=== PATIENT | male | born 1980 | race Caucasian/White ===

== ENCOUNTER 2019-09-18 09:52 | Inpatient (IN) | payer OTHER ==
[~2019-09-18] VITALS: Ht 175.3 cm; Wt 74.9 kg
[2019-09-18] VITALS (34 sets, daily range): BP systolic 181–228; BP diastolic 120–175
--- NOTE | 2019-09-18 10:00 | NUR ---
ER Provider Dr Liang made aware of BP. NO orders
[2019-09-18 10:29] LABS: BASOPHILS # (AUTO) 0.1 /CMM (0.0-0.2); BASOPHILS % (AUTO) 0.8 % (0.0-2.0); EOSINOPHILS % (AUTO) 0.6 % (0.0-6.0); HEMATOCRIT 42 % (39-51); HEMOGLOBIN 13.4 g/dL (13.5-17.5); LYMPHOCYTES # (AUTO) 1.1 /CMM (0.8-4.8); LYMPHOCYTES % (AUTO) 11.5 % (20.0-44.0); MEAN CORPUSCULAR HGB CONC 32 g/dl (31.0-36.0); MEAN CORPUSCULAR VOLUME 74 fL (80-96); MONOCYTES # (AUTO) 0.5 /CMM (0.1-1.30); MONOCYTES % (AUTO) 5.3 % (2.0-12.0); NEUTROPHILS # (AUTO) 7.8 /CMM (1.8-8.9); NEUTROPHILS % (AUTO) 81.8 % (43.0-81.0); PLATELET COUNT (AUTO) 294 /CMM (150-450); RED BLOOD CELL COUNT(AUTO) 5.62 MIL/uL (4.5-6.0); WHITE BLOOD COUNT (AUTO) 9.5 K/uL (4.3-11.0)
[2019-09-18] MEDS ORDERED: HYDR-4077 PO (10:30)
[2019-09-18] MEDS ORDERED: CLON0.1T PO (10:30)
--- NOTE | 2019-09-18 10:30 | NUR ---
Comfortably reclining in bed NO acute changes. Await admission
[2019-09-18 10:37] LABS: CALCIUM, SERUM 8.6 mg/dL (8.5-10.1); CREATININE 2.5 mg/dL (0.6-1.3); POTASSIUM 3.8 mmol/L (3.5-5.1)
[2019-09-18 10:53] LABS: ALBUMIN 2.7 g/dL (3.4-5.0); BILIRUBIN,TOTAL 0.7 mg/dL (0.2-1.0); TOTAL PROTEIN, SERUM 6.3 g/dL (6.4-8.2)
[2019-09-18 10:55] LABS: D-DIMER 0.36 mg/L(FEU (0.17-0.50)
[2019-09-18] MEDS ORDERED: HYDROXYCHLOROQUINE 200 MG TABLET PO ONE (11:00)
[2019-09-18] MEDS ORDERED: CEFTRIAXONE 1GM BAG (ER ONLY) 50 ML IV ONE (11:00)
[2019-09-18] MEDS ORDERED: CEFTRIAXONE 1 G in IV D5W 50 ML IV ONE (11:00)
[2019-09-18] MEDS ORDERED: AZITHROMYCIN 500 MG in IV D5W 250 ML IV ONE (11:00)
[2019-09-18 11:05] LABS: C-REACTIVE PROTEIN 4.1 mg/dL (0.0-0.9)
[2019-09-18] MEDS ORDERED: HYDROXYCHLOROQUINE 200 MG TABLET ONE (11:07)
--- NOTE | 2019-09-18 11:16 | NUR ---
Endorsed to Marcellus
--- NOTE | 2019-09-18 11:19 | NUR ---
PT IS ASSIGNED 111-2
--- NOTE | 2019-09-18 11:32 | NUR ---
MADE AWARE OF BP 236/177.
[2019-09-18] MEDS ORDERED: NITROGLYCERIN PACKET 1 GM PACKET TD ONE (12:00)
[2019-09-18] MEDS ORDERED: NITROGLYCERIN PACKET 1 GM PACKET ONE (12:08)
--- NOTE | 2019-09-18 12:19 | NUR ---
REPORT GIVEN HARJINDER HOLLINGSWORTH FOR LIANA.
[2019-09-18] MEDS ORDERED: ASPIRIN 325 MG TABLET ONE (12:29)
[2019-09-18] MEDS ORDERED: ASPIRIN 325 MG TABLET PO ONE (12:30)
[2019-09-18] MEDS ORDERED: MORPHINE SULFATE INJ 2 MG/ML DISP.SYRIN IV PRN (13:00)
[2019-09-18] MEDS ORDERED: NITROGLYCERIN 0.4 MG/TAB BOTTLE SL PRN (13:00)
--- NOTE | 2019-09-18 13:17 | NUR ---
SPOKE TO ACTIVITY LEADER ASA, AUTHORIZATION # [id number]
[2019-09-18] MEDS ORDERED: HEPARIN SODIUM, PORCINE 5000 UNITS/1 ML VIAL SQ ONE (13:30)
--- NOTE | 2019-09-18 13:53 | NUR ---
PT TRANSPORTED TO UNIT ON RNORWALK WITH EMT AND RN AT BEDSIDE W/ ACLS PROTOCOL. PT AMBULATED FROM GURNEY TO BED W/O ASSIST
[2019-09-18] MEDS ORDERED: ONDANSETRON HCL/PF 4 MG/2 ML VIAL IVP PRN (14:00)
[2019-09-18] MEDS ORDERED: HYDROXYCHLOROQUINE 200 MG TABLET PO SCH (14:00)
[2019-09-18] MEDS ORDERED: ACETAMINOPHEN 325 MG TABLET PO PRN (14:00)
[2019-09-18] MEDS ORDERED: PANTOPRAZOLE 40 MG VIAL ONE (14:15)
--- NOTE | 2019-09-18 14:29 | NUR ---
1320 received pt from er not stable rr 40 shallow lower extremity pitting edema +4 on 4l nc sat 96% sbp 214/[address] Ahumada was notified no new orders, dr. Morrison at bedside advised pt to be transfered to icu orders followed pt will be transfered to icu
[2019-09-18] MEDS: FUROSEMIDE 40 MG/4 ML VIAL IV SCH ×2 (14:37→20:11)
[2019-09-18] MEDS: hydrALAZINE HCL 50 MG TABLET PO SCH ×2 (14:37→20:13)
--- NOTE | 2019-09-18 14:45 | NUR ---
PATIENT TRANSFERRED FROM [facility] TO HYPERTENSIVE URGENCY-SBP>220. PER DR. VILLEDA-PATIENT SHOULD HAVE BEEN ADMITTED STRAIGHT TO ICU. UPON ARRIVAL, PATIENT PLACED ON CONTINUOUS MONITORING, SBP >220, DBP>120. PATIENT ST 110 ON MONITOR. O2 AT 4L N/C -SATS 96%. AWAKE, ALERT AND ORIENTED, DENIES CP,DENIES PALPITATION. C/O SOB AND HEADACHE. COMPLETE ADMISSION ASSESSMENT/SYSYTEM ASSESSMENT INITIATED.
--- NOTE | 2019-09-18 15:15 | NUR ---
SPOKE TO DR. VILLEDA RE: INCREASED BP. WITH ORDERS TO START NITROGLYCERIN DRIP -TITRATE PER MD ORDER.
[2019-09-18] MEDS ORDERED: NITROGLYCERIN 100 MG in IV D5W 230 ML IV PRN ×2 (15:30→16:30)
--- NOTE | 2019-09-18 16:15 | NUR ---
FF UP TO PHARMACY RE: NTG DRIP . WILL BRING MED.
[2019-09-18] MEDS: NTG 50 MG/D5W250 ML BOTTL 250 ML IV PRN ×2 (16:25→22:17)
[2019-09-18 16:29] LABS: APPEARANCE,URINE SL CLOUDY (CLEAR); BILIRUBIN,URINE NEGATIVE (NEGATIVE); BLOOD, URINE NEGATIVE Ery/uL (NEGATIVE); COLOR,URINE YELLOW (YELLOW); KETONES,URINE NEGATIVE (NEGATIVE); LEUKOCYTE ESTERASE ,URINE NEGATIVE (NEGATIVE); NITRITE, URINE NEGATIVE (NEGATIVE); PROTEIN,URINE 100 mg/dl (NEGATIVE); UGLUCOSE NEGATIVE (NEGATIVE); UROBILINOGEN,URINE 0.2 EU/dL (0.2)
[2019-09-18 16:42] LABS: CREATININE, URINE 162.7 MG/DL (30.0-125.0); URINE TOTAL PROTEIN 214.2 mg/dL (0-11.9)
[2019-09-18 16:59] LABS: BACTERIA,URINE Rare /HPF (None Seen); COARSE GRANULAR CASTS,URINE Few /LPF (None Seen); EOSINOPHIL,URINE None Seen; SQUAMOUS EPITHELIAL CELL,UR Few /HPF (None Seen); WBC,URINE 0-2 /HPF (0-3)
[2019-09-18] MEDS ORDERED: NITROGLYCERIN PACKET 1 GM PACKET TOP SCH (18:00)
--- NOTE | 2019-09-18 18:00 | NUR ---
ONGOING TITRATION OF NTG GTT. PATIENT DENIES CHEST DISCOMFORT. NO PALPITATION. DIURESING WELL POST LASIX. CONTINUE POC.
--- NOTE | 2019-09-18 20:00 | NUR ---
Received patient A/OX4.Dx:CHF,PNA,NSTEMI,R/O COVID.SR.Hemodynamically unstable BP 221/149 with ongoing Nitroglycerine gtt & will titrate accordingly to keep SBP<160,DBP<100.Also patient on lasix IVP & Hydralazine po scheduled dose.Patient denies chest pain or palpitation.Respiration even and unlabored.With O2 4L NC sat 93%-100%.With sob on exertion.Voiding well per urinal.Droplet/ Contact Isolation precaution maintained.Continue monitoring.Call light at bedside.
--- NOTE | 2019-09-18 22:25 | NUR ---
Patient BP remains elevated max out on NTG gtt.Was medicated with Tylenol PRN MILD headache.
[2019-09-19] VITALS (91 sets, daily range): BP systolic 128–249; BP diastolic 73–166
[2019-09-19] MEDS ORDERED: NTG 50 MG/D5W250 ML BOTTL 250 ML IV ONE (01:35)
[2019-09-19] MEDS: FUROSEMIDE 40 MG/4 ML VIAL IV SCH ×2 (01:41→09:32)
[2019-09-19] MEDS: NTG 50 MG/D5W250 ML BOTTL 250 ML IV PRN (02:44)
[2019-09-19] MEDS ORDERED: MORPHINE SULFATE INJ 2 MG/ML DISP.SYRIN IV ONE (04:00)
--- NOTE | 2019-09-19 04:05 | NUR ---
Patient complaints of severe headache.Brittany FONTENOT here and made aware of BP remains elevated with NGT gtt max out also c/o severe headache.Orders received and carried out. Continue monitoring.
--- NOTE | 2019-09-19 04:30 | NUR ---
AM care done with patient assisting.Complete linens changed.
[2019-09-19] MEDS: hydrALAZINE HCL 50 MG TABLET PO SCH ×3 (04:50→20:42)
[2019-09-19 05:24] LABS: BASOPHILS % (AUTO) 0.4 % (0.0-2.0); EOSINOPHILS % (AUTO) 0.8 % (0.0-6.0); HEMATOCRIT 35 % (39-51); HEMOGLOBIN 11.3 g/dL (13.5-17.5); LYMPHOCYTES # (AUTO) 0.6 /CMM (0.8-4.8); LYMPHOCYTES % (AUTO) 6.1 % (20.0-44.0); MEAN CORPUSCULAR HGB CONC 32 g/dl (31.0-36.0); MEAN CORPUSCULAR VOLUME 74 fL (80-96); MONOCYTES # (AUTO) 0.7 /CMM (0.1-1.30); MONOCYTES % (AUTO) 7.4 % (2.0-12.0); NEUTROPHILS # (AUTO) 7.7 /CMM (1.8-8.9); NEUTROPHILS % (AUTO) 85.3 % (43.0-81.0); PLATELET COUNT (AUTO) 268 /CMM (150-450); RED BLOOD CELL COUNT(AUTO) 4.78 MIL/uL (4.5-6.0); WHITE BLOOD COUNT (AUTO) 9.1 K/uL (4.3-11.0)
--- NOTE | 2019-09-19 05:48 | NUR ---
Patient BP remains elevated SBP 198,210's,DBP's 130's-150's.BrittanySTRAP CUTTER notified.She said she will change meds to CARDENE.Per patient headache subsiding.From 03/05-10/03. Remains tachypneic hi 30's,and tachycardic 105-110.Denies chest pain,nausea or vomiting. NGT gtt infusing same dose awaiting new orders.Continue monitoring.
[2019-09-19] MEDS ORDERED: PIPERACILLIN /TAZOBACTAM 2.25 G in IV D5W 50 ML IV ONE (06:00)
[2019-09-19] MEDS ORDERED: PIPERACILLIN /TAZOBACTAM 2.25 G VIAL IV ONE (06:26)
[2019-09-19] MEDS ORDERED: NICARDIPINE IN DEXTROSE,ISO-OS 200 ML IV ONE (06:28)
[2019-09-19] MEDS ORDERED: NICARDIPINE HCL 50 MG in IV NS 0.9% 230 ML IV PRN (06:30)
[2019-09-19 06:31] LABS: D-DIMER 0.49 mg/L(FEU (0.17-0.50)
--- NOTE | 2019-09-19 07:15 | NUR ---
NTG GTT COMPLETED. SPOKE TO PHARMACIST RE: TAMI SHAW ORDER.
--- NOTE | 2019-09-19 08:10 | NUR ---
SPOKE TO DR. FINCH re: SIGNIFICANTLY HIGH BP INSPITE OF GTT-PER MD WILL READJUST BP MEDS.
[2019-09-19 08:19] LABS: ALBUMIN 2.6 g/dL (3.4-5.0); BILIRUBIN,TOTAL 0.8 mg/dL (0.2-1.0); CALCIUM, SERUM 8.7 mg/dL (8.5-10.1); CREATININE 2.5 mg/dL (0.6-1.3); MAGNESIUM 1.9 mg/dL (1.8-2.4); PHOSPHORUS 4.1 mg/dL (2.5-4.9); POTASSIUM 3.2 mmol/L (3.5-5.1); TOTAL PROTEIN, SERUM 5.9 g/dL (6.4-8.2)
[2019-09-19] MEDS ORDERED: NIFEdipine XL (30MG) 30 MG TAB PO SCH (09:00)
[2019-09-19 09:01] LABS: APPEARANCE,URINE CLEAR (CLEAR); BILIRUBIN,URINE NEGATIVE (NEGATIVE); BLOOD, URINE NEGATIVE Ery/uL (NEGATIVE); KETONES,URINE NEGATIVE (NEGATIVE); LEUKOCYTE ESTERASE ,URINE NEGATIVE (NEGATIVE); NITRITE, URINE NEGATIVE (NEGATIVE); PH,URINE 6.5 (5.0-8.0); PROTEIN,URINE TRACE mg/dl (NEGATIVE); UGLUCOSE NEGATIVE (NEGATIVE); UROBILINOGEN,URINE 0.2 EU/dL (0.2)
[2019-09-19 09:07] LABS: COLOR,URINE STRAW (YELLOW)
[2019-09-19] MEDS: ASPIRIN EC 81 MG TABLET.DR PO SCH (09:28)
[2019-09-19] MEDS: POTASSIUM CHLORIDE 20 MEQ TAB.PRT.SR PO SCH ×2 (09:28→10:33)
[2019-09-19] MEDS: HYDROXYCHLOROQUINE 200 MG TABLET PO SCH ×2 (09:28→20:42)
[2019-09-19] MEDS: ISOSORBIDE DINITRATE (20MG) 20 MG TABLET PO SCH ×2 (09:28→16:18)
--- NOTE | 2019-09-19 09:30 | NUR ---
BP PO MEDS GIVEN PER DR. FINCH. BUMEX DRIP STARTED. REMAINS ON CARDENE DRIP AT 5 MG/HR . SBP>200. WILL CONTINUE TO MONITOR CLOSELY. PATIENT DENIES HEADACHE. NO DISCOMFORT PRESENTED.
[2019-09-19] MEDS ORDERED: FUROSEMIDE 40 MG/4 ML VIAL IV SCH (10:00)
[2019-09-19] MEDS ORDERED: BUMETANIDE INJ 8 MG in IV NS 0.9% 48 ML IV ONE (10:00)
[2019-09-19 10:42] LABS: THYROID STIMULATING HORMONE 3.024 uIU/mL (0.358-3.74); URIC ACID 7.6 mg/dL (2.6-7.2)
[2019-09-19] MEDS ORDERED: CEFTRIAXONE 1 G in IV D5W 50 ML IV SCH (11:00)
[2019-09-19 11:35] LABS: BACTERIA,URINE Rare /HPF (None Seen); RBC,URINE 0-2 /HPF (0-2); SQUAMOUS EPITHELIAL CELL,UR Rare /HPF (None Seen); WBC,URINE 0-2 /HPF (0-3)
[2019-09-19] MEDS ORDERED: PIPERACILLIN /TAZOBACTAM 2.25 G in IV D5W 50 ML IV SCH (12:00)
[2019-09-19] MEDS: PIPERACILLIN /TAZOBACTAM 3.375 G in IV D5W 100 ML IV SCH ×2 (13:04→20:00)
[2019-09-19 13:41] LABS: EOSINOPHIL,URINE None Seen
--- NOTE | 2019-09-19 14:30 | NUR ---
NICARDIPINE GTT TITRATED OFF AT THIS TIME. ABP>150'S.
--- NOTE | 2019-09-19 17:00 | NUR ---
CARDENE DRIP REMAINS OFF. [id number]. NO VERBAL COMPLAINTS PRESENTED. AMBULATORY AT BEDSIDE. NO DIZZINESS PRESENTED.
--- NOTE | 2019-09-19 20:00 | NUR ---
Received patient A/OX4.VS stable.ST 105-112.Respiration even and unlabored.On RA saturation 96%-97%.Denies chest pain or sob.Voiding per urinal moderate amount.Ambulating at bedside. Continue monitoring.
--- NOTE | 2019-09-19 23:30 | NUR ---
Patient CT Chest wo contrast done.Tolerated procedure well.
[2019-09-20] VITALS (71 sets, daily range): BP systolic 138–187; BP diastolic 72–111
--- NOTE | 2019-09-20 00:15 | NUR ---
Patient resting in no acute distress.Afebrile.ST 103.SPO2 100% in RA.Respiration even and unlabored.BP elevated 162/110.Nicardipine gtt restarted.Continue to monitor.
--- NOTE | 2019-09-20 02:34 | NUR ---
DR. Dora Xiong,Radiologist called of patient CT Chest results looks like COVID 19 Pneumonia +VE. Droplet Isolation maintained.
[2019-09-20] MEDS ORDERED: PIPERACILLIN /TAZOBACTAM 3.375 G VIAL IV ONE ×2 (03:25→20:26)
[2019-09-20] MEDS ORDERED: NICARDIPINE IN DEXTROSE,ISO-OS 200 ML IV ONE (03:33)
[2019-09-20] MEDS: PIPERACILLIN /TAZOBACTAM 3.375 G in IV D5W 100 ML IV SCH ×3 (04:00→20:28)
[2019-09-20] MEDS ORDERED: IV NS 0.9% 250 ML IV ONE (04:30)
[2019-09-20] MEDS ORDERED: NICARDIPINE HCL 20 MG in IV NS 0.9% 184 ML IV PRN (05:00)
[2019-09-20] MEDS: hydrALAZINE HCL 50 MG TABLET PO SCH ×3 (05:02→20:28)
[2019-09-20 05:09] LABS: BASOPHILS # (AUTO) 0.1 /CMM (0.0-0.2); BASOPHILS % (AUTO) 1.1 % (0.0-2.0); EOSINOPHILS % (AUTO) 3.9 % (0.0-6.0); HEMATOCRIT 38 % (39-51); HEMOGLOBIN 12.4 g/dL (13.5-17.5); LYMPHOCYTES # (AUTO) 0.7 /CMM (0.8-4.8); LYMPHOCYTES % (AUTO) 10.2 % (20.0-44.0); MEAN CORPUSCULAR HGB CONC 33 g/dl (31.0-36.0); MEAN CORPUSCULAR VOLUME 73 fL (80-96); MONOCYTES # (AUTO) 0.5 /CMM (0.1-1.30); MONOCYTES % (AUTO) 7.6 % (2.0-12.0); NEUTROPHILS # (AUTO) 5.3 /CMM (1.8-8.9); NEUTROPHILS % (AUTO) 77.2 % (43.0-81.0); PLATELET COUNT (AUTO) 305 /CMM (150-450); RED BLOOD CELL COUNT(AUTO) 5.23 MIL/uL (4.5-6.0); WHITE BLOOD COUNT (AUTO) 6.9 K/uL (4.3-11.0)
[2019-09-20 05:16] LABS: CALCIUM, SERUM 8.7 mg/dL (8.5-10.1); CREATININE 2.6 mg/dL (0.6-1.3)
--- NOTE | 2019-09-20 06:15 | NUR ---
Patient resting.AM care done.Afebrile.ST low 100's.BP still elevated on Cardene gtt. Denies pain with sob on exertion.Remains on room air all throughout the night.SPO2 94%-100%.Droplet Isolation precaution maintained.Will endorse to day shift for karl.
[2019-09-20 07:13] LABS: PTH, INTACT 113 pg/mL (15-65)
[2019-09-20] MEDS: ISOSORBIDE DINITRATE (20MG) 20 MG TABLET PO SCH ×2 (08:03→17:28)
[2019-09-20] MEDS: NIFEdipine XL (30MG) 30 MG TAB PO SCH ×3 (08:03→17:28)
[2019-09-20] MEDS: HYDROXYCHLOROQUINE 200 MG TABLET PO SCH (08:04)
[2019-09-20] MEDS: ASPIRIN EC 81 MG TABLET.DR PO SCH (08:04)
[2019-09-20] MEDS: POTASSIUM CHLORIDE 20 MEQ TAB.PRT.SR PO SCH ×2 (08:04→09:52)
[2019-09-20] MEDS ORDERED: HYDROXYCHLOROQUINE 200 MG TABLET PO SCH (09:00)
--- NOTE | 2019-09-20 09:45 | NUR ---
RN NOTE 0715: Received patient awake, A/Ox4. On isolation prec for possible Covid. 99% on room air. Monitored for high BP, Cardene drip on hold, will continue to monitor. PIVs intact. 0830: With order to DC Cardene drip and changed to PO BP meds. 0900: S/E by Dr. Morrison, reviewed CT chest and the CXR. Per MD, DC isolation for Covid and follow up with ID for DC-ing Plaquenil. Made patient aware for the POC. 0945: No any significant changes noted at this time.
--- NOTE | 2019-09-20 11:00 | NUR ---
RN NOTE S/E by Dr. Tatum, with order to DC Plaquenil and transfer to tele.
[2019-09-20 11:06] LABS: HIV SCRN 4G wRFX Non Reactive (Non Reactive)
--- NOTE | 2019-09-20 16:20 | NUR ---
RN NOTE Swabbed patient for Covid test, sent to lab personally.
--- NOTE | 2019-09-20 17:30 | NUR ---
RN NOTE Able to collect sputum specimen, placed to specimen fridge and informed lab.
--- NOTE | 2019-09-20 21:00 | NUR ---
TIRE BUSTER PT IS AWAKE, ALERT, ORIENTED. C/O NO SOB, PAIN OR ANY OTHER DISTRESS. VITAL SIGHS STABLE, SCOPE-ST. NO DRIPS. H.L. VOIDS SUFFICIENT AMT. OF CLEAR URINE. TELE. STATUS. PT WAS TRANSFERRED TO ROOM 327-2. REPORT GIVEN TO Kalani JOSHI RN.
--- NOTE | 2019-09-20 21:30 | NUR ---
tele district wire chief initial notes received report from ICU Charge nurse ED and received pt transferred from ICU .DX of CHF, NON-STEMI, HTN. .Pt is alert oriented x4 , denies any chest pain or any discomfort. Right hand gauge 20 HL and BETTY midline. He also on tele Sinus Tach heart rate 103 per monitor. No sigs of any discomfort. kept him warm and comfortable at all times place call light at reach. will continue monitoring.
[2019-09-20] MEDS: DOXAZOSIN MESYLATE (4 MG) 4 MG TABLET PO SCH (23:39)
[2019-09-21] VITALS (11 sets, daily range): BP systolic 136–161; BP diastolic 77–92
[2019-09-21] MEDS: PIPERACILLIN /TAZOBACTAM 3.375 G in IV D5W 100 ML IV SCH ×3 (04:36→20:44)
[2019-09-21] MEDS: hydrALAZINE HCL 50 MG TABLET PO SCH ×3 (05:20→20:45)
--- NOTE | 2019-09-21 07:06 | NUR ---
tele distance education faculty liaison closing notes pt woke up because radiology came to have a chest X-ray as ordered. Denies any pain or any discomfort. Slept well kimmy the night since he transferred here . Still Zosyn infusing as ordered. all due meds given and all needs met. Tele Sinus Tach per monitor.Will endorse to am nurse for continuity of care. place call light at reach.
--- NOTE | 2019-09-21 07:30 | NUR ---
MS/RN Patient received Patient received from car shifter. A/O X4, denies any pain or shortness of breath at this time. No needs or concenrs at this time. Will continue to monitor and ensure safety.
[2019-09-21] MEDS: ISOSORBIDE DINITRATE (20MG) 20 MG TABLET PO SCH ×2 (07:54→16:27)
[2019-09-21] MEDS: NIFEdipine XL (30MG) 30 MG TAB PO SCH ×2 (07:54→16:28)
[2019-09-21] MEDS: ASPIRIN EC 81 MG TABLET.DR PO SCH (07:54)
[2019-09-21 08:05] LABS: ALBUMIN 2.9 g/dL (3.4-5.0); BILIRUBIN,TOTAL 0.6 mg/dL (0.2-1.0); CALCIUM, SERUM 8.6 mg/dL (8.5-10.1); CREATININE 2.5 mg/dL (0.6-1.3); MAGNESIUM 2.1 mg/dL (1.8-2.4); PHOSPHORUS 3.8 mg/dL (2.5-4.9); POTASSIUM 3.1 mmol/L (3.5-5.1); TOTAL PROTEIN, SERUM 6.6 g/dL (6.4-8.2)
--- NOTE | 2019-09-21 08:14 | NUR ---
MS/RN Hypertension Morning blood pressure medication administered early due to elevated BP - 161/85. Will recheck blood pressure in one hour.
[2019-09-21 08:15] LABS: BASOPHILS # (AUTO) 0.1 /CMM (0.0-0.2); BASOPHILS % (AUTO) 1.6 % (0.0-2.0); EOSINOPHILS % (AUTO) 6.7 % (0.0-6.0); HEMATOCRIT 38 % (39-51); HEMOGLOBIN 12.3 g/dL (13.5-17.5); LYMPHOCYTES # (AUTO) 0.9 /CMM (0.8-4.8); LYMPHOCYTES % (AUTO) 18.3 % (20.0-44.0); MEAN CORPUSCULAR HGB CONC 32 g/dl (31.0-36.0); MEAN CORPUSCULAR VOLUME 73 fL (80-96); MONOCYTES # (AUTO) 0.3 /CMM (0.1-1.30); MONOCYTES % (AUTO) 7.3 % (2.0-12.0); NEUTROPHILS # (AUTO) 3.1 /CMM (1.8-8.9); NEUTROPHILS % (AUTO) 66.1 % (43.0-81.0); PLATELET COUNT (AUTO) 308 /CMM (150-450); RED BLOOD CELL COUNT(AUTO) 5.23 MIL/uL (4.5-6.0); WHITE BLOOD COUNT (AUTO) 4.7 K/uL (4.3-11.0)
--- NOTE | 2019-09-21 09:17 | NUR ---
MS/RN Labs Morning labs reviewed: -K+ 3.1 -Trop 0.215
[2019-09-21 11:08] LABS: *SPE ALBUMIN 2.6 g/dL (2.9-4.4); *SPE ALPHA-1-GLOBULIN 0.4 g/dL (0.0-0.4); *SPE ALPHA-2-GLOBULIN 0.8 g/dL (0.4-1.0); *SPE BETA GLOBULIN 0.8 g/dL (0.7-1.3); *SPE GLOBULIN, TOTAL 2.5 g/dL (2.2-3.9); *SPE M-SPIKE Not Observed g/dL (Not Observed); *SPEGAMMA GLOBULIN 0.5 g/dL (0.4-1.8)
[2019-09-21] MEDS: POTASSIUM CHLORIDE 20 MEQ TAB.PRT.SR PO SCH ×2 (11:23→12:43)
[2019-09-21] MEDS: CARVEDILOL 12.5 MG TABLET PO SCH ×2 (11:24→20:44)
--- NOTE | 2019-09-21 12:00 | NUR ---
MS/RN New orders New orders noted and carried out for additional blood pressure medications.
--- NOTE | 2019-09-21 12:35 | NUR ---
Social service consult requested by MD for homelessness. Per MD notes and chart review, pt is a 39-year-old -Turkmen male with history of hypertension and CHF was brought in by the paramedics from his correction where he was living. Patient was having cough, shortness of breath and fever. Pt was initially tested for Covid-19 but was negative. A second Covid-19 test is pending. In Lieu of Covid-19, TSO conducted assessment via phone on pt's personal cell phone. Pt is alert and oriented x 4. Pt is pleasant and cooperative with TSO. Pt reports, that he is currently residing at [facility] located at [address] in [place]. Pt states the facility is holding a bed for him. Pt has been homeless for about a year. 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 Pt has six children and he is involved with all of them. Pt's family resides in [place]. Pt's emergency contact is his children's mother Tiffany Chi . Pt is ambulatory with his ADLS and IADLS. Pt receives GR monthly. Pt denies any alcohol use. Pt reports to use marijuana every other day. Pt smokes approximately 6 to 7 cigarettes per day. Pt denies any psychiatric history. Pt denies suicidal and homicidal ideations and visual/auditory hallucinations at this time. TSO provided pt with active listening, emotional support and supportive counseling. Pt wants to discharge back to his correction when medically cleared. Pt will require a TAP card. [facility] updated CRAustin Delgadillo and pt's bedside HARJINDER Goldsmith regarding pt's discharge disposition. HARJINDER Goldsmith will have pt sign the Homeless Patient Waiver Form upon discharge. Customs Director is available as needed.
--- NOTE | 2019-09-21 15:52 | NUR ---
MS/RN S/B Dr Owens Seen by Dr Roman guerrero for discharge planning tomorrow. Patient needs to sign homeless waiver form before leaving tomorrow.
--- NOTE | 2019-09-21 18:12 | NUR ---
MS/RN End note Remains in stable condition, denies pain. For discharge tomorrow to [facility], located at [address] [place] [address]. Homeless waiver form still to be signed prior to patient leaving. Will endorse to night nurse.
--- NOTE | 2019-09-21 19:30 | NUR ---
MS RN OPENING NOTE RECEIVED PATIENT IN BED. A/OX4. TOLERATING ROOM AIR. RESPIRATIONS ARE EVEN AND UNLABORED. NO S/S SOB NOTED. NO C/O PAIN AT THIS TIME. IN NO APPARENT DISTRESS. IV ACCESS IN ANDRIY MIDLINE RUNNING TKO. BED IS LOW AND LOCKED HOB ELEVATED IN HIGH FOWLERS, SIDE RAILS UP X2, CALL LIGHT WITHIN REACH. WILL CONTINUE TO MONITOR.
[2019-09-21] MEDS: DOXAZOSIN MESYLATE (4 MG) 4 MG TABLET PO SCH (22:43)
--- NOTE | 2019-09-22 03:06 | NUR ---
MS RN NOTE TRANSFER OF CARE TO [facility].
--- NOTE | 2019-09-22 03:10 | NUR ---
MS RN NOTES RECEIVED REPORT FROM HARJINDER REED, PATIENT IN BED SLEEPING, EASILY AWAKEN BY NAME AND LIGHT TOUCH. NO SIGNS OF RESPIRATORY DISTRESS OR SOB, WITH EVEN NON-LABORED BREATHING. NO SIGNS OF DISCOMFORT, PROVIDED COMFORT MEASURES TO PATIENT. SAFETY PRECAUTIONS IN PLACE WITH BED IN THE LOWEST POSITION, BILATERAL SIDE RAILS UP, AND CALL LIGHT WITHIN EASY REACH OF THE PATIENT. WILL CONTINUE TO MONITOR PATIENT.
[2019-09-22] MEDS: hydrALAZINE HCL 50 MG TABLET PO SCH ×3 (04:32→22:21)
[2019-09-22] MEDS: PIPERACILLIN /TAZOBACTAM 3.375 G in IV D5W 100 ML IV SCH ×3 (04:45→19:52)
--- NOTE | 2019-09-22 04:45 | NUR ---
MS RN NOTES ZOSYN 3.375 G DUE AT 0400, FELL AND CRACKED ONTO THE GROUND AND THE GLASS VIAL BROKE. USED THE 1200 ZOSYN 3.375 G. WILL CALL PHARMACY TO REPLACE THE NEXT DOSE. WILL CONTINUE TO MONITOR PATIENT.
--- NOTE | 2019-09-22 07:44 | NUR ---
MS RN NOTES PATIENT IN BED SLEEPING, ALERT AND ORIENTED X 4 EASILY AWAKEN, NO SIGNS OF RESPIRATORY DISTRESS PRESENT, WITH EVEN NON-LABORED BREATHING. IV ACCESS IN PLACE AND INTACT. SKIN KEPT CLEAN AND DRY. ALL OF PATIENT NEEDS MET. SAFETY PRECAUTIONS IN PLACE WITH BED IN THE LOWEST POSITION, BILATERAL SIDE RAILS UP, BED LOCKED, AND CALL LIGHT WITHIN EASY REACH OF THE PATIENT. WILL ENDORSE PLAN OF CARE TO UPCOMING DAYSHIFT NURSE.
[2019-09-22 08:00] VITALS: BP 149/95
--- NOTE | 2019-09-22 08:00 | NUR ---
MS RN OPENING NOTES Received Patient asleep and resting in bed. A/O x 4. Patient in stable condition. Breathing even and unlabored on room air with no respiratory distress. No signs and symptoms of pain. BETTY Midline clean, intact, patent and flushing well. Safety precautions in place. Bed locked and set to lowest position with side rails x 2 up. All needs rendered at this time. Call light within reach. Will continue to monitor.
[2019-09-22 08:50] LABS: CALCIUM, SERUM 8.7 mg/dL (8.5-10.1); CREATININE 2.3 mg/dL (0.6-1.3); POTASSIUM 3.3 mmol/L (3.5-5.1)
[2019-09-22] MEDS: ASPIRIN EC 81 MG TABLET.DR PO SCH (09:39)
[2019-09-22] MEDS: CARVEDILOL 12.5 MG TABLET PO SCH ×2 (09:40→22:22)
[2019-09-22] MEDS: ISOSORBIDE DINITRATE (20MG) 20 MG TABLET PO SCH ×2 (09:40→17:10)
[2019-09-22] MEDS: NIFEdipine XL (30MG) 30 MG TAB PO SCH ×2 (09:41→17:10)
[2019-09-22] MEDS: POTASSIUM CHLORIDE 20 MEQ TAB.PRT.SR PO SCH ×3 (12:30→14:31)
[2019-09-22 16:00] VITALS: BP 146/100
--- NOTE | 2019-09-22 19:07 | NUR ---
MS RN CLOSING NOTES Patient resting in bed. A/O x 4. Patient in stable condition. Breathing even and unlabored on room air with no respiratory distress. No signs and symptoms of pain. BETTY Midline clean, intact, patent and flushing well. Safety precautions in place. Bed locked and set to lowest position with side rails x 2 up. All needs rendered at this time. Call light within reach. Will endorse plan of care to oncoming shift.
--- NOTE | 2019-09-22 19:50 | NUR ---
rn open notes Patient is laying in bed. No complaints of pain at the moment. Bed is in lowest locked position with side rails up. Call light is within reach. No sob/ acute respiratory distress noted. Will continue to monitor.
[2019-09-22 20:22] VITALS: BP 152/111
[2019-09-22] MEDS: DOXAZOSIN MESYLATE (4 MG) 4 MG TABLET PO SCH (22:21)
[2019-09-23] MEDS: PIPERACILLIN /TAZOBACTAM 3.375 G in IV D5W 100 ML IV SCH ×2 (05:23→12:57)
[2019-09-23] MEDS: hydrALAZINE HCL 50 MG TABLET PO SCH ×2 (05:30→12:57)
[2019-09-23 07:18] LABS: BASOPHILS % (AUTO) 1.2 % (0.0-2.0); EOSINOPHILS % (AUTO) 7.4 % (0.0-6.0); HEMATOCRIT 42 % (39-51); HEMOGLOBIN 13.6 g/dL (13.5-17.5); LYMPHOCYTES # (AUTO) 0.6 /CMM (0.8-4.8); LYMPHOCYTES % (AUTO) 14.5 % (20.0-44.0); MEAN CORPUSCULAR HGB CONC 32 g/dl (31.0-36.0); MEAN CORPUSCULAR VOLUME 73 fL (80-96); MONOCYTES # (AUTO) 0.3 /CMM (0.1-1.30); MONOCYTES % (AUTO) 8.5 % (2.0-12.0); NEUTROPHILS # (AUTO) 2.7 /CMM (1.8-8.9); NEUTROPHILS % (AUTO) 68.4 % (43.0-81.0); PLATELET COUNT (AUTO) 375 /CMM (150-450); RED BLOOD CELL COUNT(AUTO) 5.77 MIL/uL (4.5-6.0); WHITE BLOOD COUNT (AUTO) 3.9 K/uL (4.3-11.0)
--- NOTE | 2019-09-23 07:25 | NUR ---
RN close notes Patient is laying in bed. All due meds given. No SOB/ acute respiratory distress noted. No complaints of pain at the moment. Call light is within reach. Bed is in lowest locked position with side rails up x2. Will endorse to AM nurse.
[2019-09-23 07:42] LABS: CALCIUM, SERUM 8.8 mg/dL (8.5-10.1); CREATININE 2.4 mg/dL (0.6-1.3); MAGNESIUM 2.4 mg/dL (1.8-2.4); PHOSPHORUS 4.3 mg/dL (2.5-4.9); POTASSIUM 3.4 mmol/L (3.5-5.1)
--- NOTE | 2019-09-23 07:47 | NUR ---
MS GRANDE OPENING NOTE PATIENT IN BED RESTING COMFORTABLY. PATIENT IN NO ACUTE DISTRESS. NO SOB NOTED. PATIENT BREATHING IS EVEN AND UNLABORED. PATIENT BED ALARM IS ON. SAFETY PRECAUTIONS IN PLACE. PATIENT STATES NO PAIN AT THIS TIME. PATIENT BED IS LOCKED AND IN LOWEST POSITION. CALL LIGHT WITHIN REACH. WILL CONTINUE TO MONITOR. Addendum: 09/23/19 at 0831 by DANICA LEWIS RN DISREGARD NOTE, WRONG PATIENT DOCUMENTED.
[2019-09-23 08:00] VITALS: BP 157/98
--- NOTE | 2019-09-23 08:00 | NUR ---
MS RN OPENING NOTES Received patient awake and resting in bed. A/O x 4. Patient in stable condition. Breathing even and unlabored on room air with no respiratory distress. No signs and symptoms of pain. BETTY Midline clean, intact, patent and flushing well. Safety precautions in place. Bed locked and set to lowest position with side rails x 2 up. All needs rendered at this time. Call light within reach. Will continue to monitor.
[2019-09-23] MEDS: ASPIRIN EC 81 MG TABLET.DR PO SCH (09:34)
[2019-09-23] MEDS: NIFEdipine XL (30MG) 30 MG TAB PO SCH (09:35)
[2019-09-23] MEDS: ISOSORBIDE DINITRATE (20MG) 20 MG TABLET PO SCH (09:35)
[2019-09-23] MEDS: CARVEDILOL 12.5 MG TABLET PO SCH (09:35)
[2019-09-23] MEDS ORDERED: POTASSIUM CHLORIDE 10 MEQ TABLET.SA PO ONE (10:00)
[2019-09-23] MEDS ORDERED: CARV12.52 PO (12:00)
[2019-09-23] MEDS ORDERED: ISOS20TA8 PO (12:00)
[2019-09-23] MEDS ORDERED: ASPI-1420 PO (12:00)
[2019-09-23] MEDS ORDERED: HYDR-4077 PO (12:00)
[2019-09-23] MEDS ORDERED: DOXA4TAB19 PO (12:00)
[2019-09-23] MEDS ORDERED: NIFE-35 PO (12:00)
[2019-09-23 12:57] VITALS: BP 137/81
--- NOTE | 2019-09-23 14:50 | NUR ---
DISCHARGED PT HOME WITH STABLE V/S.TAP CARD,PRESCRIPTION,DISCHARGE INSTRUCTIONS PROVIDED.PT SIGNED THE HOMELESS WAIVER.BETTY MIDLINE REMOVED WITH NO BLEEDING NOTED.PT WENT TO RETURN TO [facility].
== END 2019-09-23 14:15 | disposition home or self-care (01) | DRG 133 ==
LOC: ER 09:55 → TELE-TD 13:27 → ICU 14:57 → TELE 09-20 21:31 → MED 09-21 11:13
PROVIDERS: ATTEND Hospitalist
PROC: 05HY33Z Insertion of Infusion Device into Upper Vein, Percutaneous Approach (ICD-10-PCS; principal; 2019-09-19)
DX: J96.01 Acute respiratory failure with hypoxia (principal); I21.A1 Myocardial infarction type 2; E43 Unspecified severe protein-calorie malnutrition; N17.0 Acute kidney failure with tubular necrosis; I13.0 Hypertensive heart and chronic kidney disease with heart failure and stage 1 through stage 4 chronic kidney disease, or unspecified chronic kidney disease; I50.33 Acute on chronic diastolic (congestive) heart failure; G93.40 Encephalopathy, unspecified; J90 Pleural effusion, not elsewhere classified; Z79.899 Other long term (current) drug therapy; E87.1 Hypo-osmolality and hyponatremia; R71.8 Other abnormality of red blood cells; E66.9 Obesity, unspecified; N18.9 Chronic kidney disease, unspecified; Z59.0 Homelessness; Z82.49 Family history of ischemic heart disease and other diseases of the circulatory system; I16.1 Hypertensive emergency; F17.200 Nicotine dependence, unspecified, uncomplicated; E87.6 Hypokalemia; E11.22 Type 2 diabetes mellitus with diabetic chronic kidney disease; I45.81 Long QT syndrome
CPT/HCPCS: 36410; 36415; 71045-TC; 71250-TC; 80048-TC; 80053-TC; 81000-TC; 82550-TC; 82570-TC; 82728-TC; 83605-TC; 83615-TC; 83735-TC; 83880; 83970; 84100-TC; 84155; 84155-TC; 84165; 84300-TC; 84443-TC; 84484-TC; 84550-TC; 85025-TC; 85378-TC; 85385-TC; 85730-TC; 86140-TC; 86803; 87040-TC; 87070-TC; 87081-TC; 93307-TC; A6403; C9113; G0378; J0456; J0696; J1644; J1940; J2270; J2543; J3490; J7050; J7060

== ENCOUNTER 2019-10-09 18:45 | Inpatient (IN) | payer OTHER ==
[~2019-10-09] VITALS: Ht 177.8 cm; Wt 78.9 kg
[2019-10-09] VITALS (9 sets, daily range): BP systolic 168–233; BP diastolic 89–164
[~2019-10-09 18:45] MED LIST: ASPI-1152 PO; CARV12.52 PO; CLON0.1T PO; DOXA4TAB19 PO; HYDR-4077 PO; ISOS20TA8 PO; NIFE-35 PO
[2019-10-09] MEDS ORDERED: NITROGLYCERIN PACKET 1 GM PACKET TD ONE (19:00)
[2019-10-09] MEDS ORDERED: FUROSEMIDE 40 MG/4 ML VIAL ONE (19:00)
[2019-10-09] MEDS ORDERED: NITROGLYCERIN PACKET 1 GM PACKET ONE (19:00)
[2019-10-09] MEDS ORDERED: FUROSEMIDE 40 MG/4 ML VIAL IV ONE (19:00)
--- NOTE | 2019-10-09 19:12 | NUR ---
[email or web address], from homeless custodial, fever,cough, and sob x 2 days, Hx CHF. On room air, connected to the monitor and pulse ox. kept comfortable, will continue to monitor accordingly.
--- NOTE | 2019-10-09 19:17 | NUR ---
xray at bedside
[2019-10-09 19:24] LABS: CALCIUM, SERUM 8.6 mg/dL (8.5-10.1); CREATININE 2.6 mg/dL (0.6-1.3); POTASSIUM 4.4 mmol/L (3.5-5.1)
--- NOTE | 2019-10-09 19:26 | NUR ---
REPORT RECEIVED FROM HARJINDER MCWILLIAMS FOR LIANA
--- NOTE | 2019-10-09 19:36 | NUR ---
NOTED HYPERTENSION. AWARE
[2019-10-09 19:38] LABS: BILIRUBIN,TOTAL 0.9 mg/dL (0.2-1.0)
[2019-10-09] MEDS ORDERED: NTG 50 MG/D5W250 ML BOTTL 250 ML IV ONE ×2 (19:46→20:00)
[2019-10-09 19:48] LABS: ALBUMIN 2.8 g/dL (3.4-5.0); BILIRUBIN,DIRECT 0.1 mg/dL (0.0-0.2)
--- NOTE | 2019-10-09 20:00 | NUR ---
BP AT 234/166 MD MADE AWARE. ORDERS RECEIVED
[2019-10-09] MEDS ORDERED: CLON0.2T PO (20:27)
[2019-10-09] MEDS ORDERED: HYDR-4075 PO (20:27)
[2019-10-09 20:32] LABS: BASOPHILS % (AUTO) 0.4 % (0.0-2.0); EOSINOPHILS % (AUTO) 0.6 % (0.0-6.0); HEMATOCRIT 40 % (39-51); HEMOGLOBIN 12.6 g/dL (13.5-17.5); LYMPHOCYTES # (AUTO) 1.4 /CMM (0.8-4.8); MEAN CORPUSCULAR HGB CONC 32 g/dl (31.0-36.0); MEAN CORPUSCULAR VOLUME 74 fL (80-96); MONOCYTES # (AUTO) 0.6 /CMM (0.1-1.30); NEUTROPHILS # (AUTO) 5.5 /CMM (1.8-8.9); PLATELET COUNT (AUTO) 200 /CMM (150-450); WHITE BLOOD COUNT (AUTO) 7.6 K/uL (4.3-11.0)
[2019-10-09 20:38] LABS: EOSINOPHILS % (MANUAL) 1 % (0-4); LYMPHOCYTES % (MANUAL) 14 % (16-48); MONOCYTES % (MANUAL) 7 % (0-11.0); NEUTROPHILS % (MANUAL) 78 (42-76)
--- NOTE | 2019-10-09 20:55 | NUR ---
BED ASSIGNMENT 256
--- NOTE | 2019-10-09 21:02 | NUR ---
ICU WILL CALL BACK FOR REPORT
[2019-10-09] MEDS ORDERED: ONDANSETRON HCL/PF 4 MG/2 ML VIAL IVP PRN (21:30)
[2019-10-09] MEDS ORDERED: ACETAMINOPHEN 325 MG TABLET PO PRN (21:30)
[2019-10-09] MEDS ORDERED: MAG HYDROX/AL HYDROX/SIMETH 30 ML UDC PO PRN (21:30)
[2019-10-09] MEDS ORDERED: HYDROCODONE/APAP 5/325MG 1 EACH TABLET PO PRN (21:30)
--- NOTE | 2019-10-09 21:42 | NUR ---
PT TRANSFERRED TO ROOM VIA ACLS PROTOCOL
[2019-10-09] MEDS: hydrALAZINE HCL 50 MG TABLET PO SCH (22:28)
[2019-10-09] MEDS: DOXAZOSIN MESYLATE (4 MG) 4 MG TABLET PO SCH (22:28)
[2019-10-09] MEDS: CARVEDILOL 12.5 MG TABLET PO SCH (22:29)
[2019-10-09] MEDS: NTG 50 MG/D5W250 ML BOTTL 250 ML IV PRN (22:41)
[2019-10-09 22:56] LABS: C-REACTIVE PROTEIN 7.5 mg/dL (0.0-0.9)
[2019-10-10] VITALS (57 sets, daily range): BP systolic 109–212; BP diastolic 66–137
[2019-10-10] MEDS ORDERED: NTG 50 MG/D5W250 ML BOTTL 250 ML IV ONE ×2 (01:00→06:26)
--- NOTE | 2019-10-10 03:25 | NUR ---
ALMOND BLANCHER OPERATOR PT WAS ADMITTED FROM ER WITH DIAGNOSIS HYPERTENSION EMERGENCY, NSTEMI, CHF. PT IS AWAKE, ALERT, ORIENTED X 4, SPEECH IS CLEAR, [place], MOVES ALL EXTREMITIES. O2 2L VIA N/C. SCOPE-SR-ST. PT REMAINS HYPERTENSIVE DESPITE HE IS ON NTG DRIP & ALSO GIVEN HYDRALAZINE 100 MG PO, COREG 25 MG PO CARDURA 4 MG PO. URINE OUTPUT IS ADEQUATE AFTER RECEIVING LASIX 40 MG IVP. IV SITE IS INTACT. MEDICATED ORDER. WILL CONTINUE CLOSE MONITORING.
[2019-10-10] MEDS: NTG 50 MG/D5W250 ML BOTTL 250 ML IV PRN (03:29)
[2019-10-10] MEDS: hydrALAZINE HCL 50 MG TABLET PO SCH ×3 (04:49→20:38)
[2019-10-10 05:04] LABS: ALBUMIN 2.4 g/dL (3.4-5.0); BILIRUBIN,TOTAL 0.9 mg/dL (0.2-1.0); CREATININE 2.6 mg/dL (0.6-1.3); MAGNESIUM 1.8 mg/dL (1.8-2.4); PHOSPHORUS 3.6 mg/dL (2.5-4.9); POTASSIUM 2.9 mmol/L (3.5-5.1); TOTAL PROTEIN, SERUM 5.2 g/dL (6.4-8.2)
[2019-10-10 05:08] LABS: BASOPHILS % (AUTO) 0.4 % (0.0-2.0); HEMATOCRIT 31 % (39-51); HEMOGLOBIN 10.3 g/dL (13.5-17.5); LYMPHOCYTES # (AUTO) 0.8 /CMM (0.8-4.8); LYMPHOCYTES % (AUTO) 11.8 % (20.0-44.0); MEAN CORPUSCULAR HGB CONC 33 g/dl (31.0-36.0); MEAN CORPUSCULAR VOLUME 73 fL (80-96); MONOCYTES # (AUTO) 0.5 /CMM (0.1-1.30); MONOCYTES % (AUTO) 6.8 % (2.0-12.0); NEUTROPHILS # (AUTO) 5.5 /CMM (1.8-8.9); PLATELET COUNT (AUTO) 175 /CMM (150-450); RED BLOOD CELL COUNT(AUTO) 4.32 MIL/uL (4.5-6.0); WHITE BLOOD COUNT (AUTO) 6.9 K/uL (4.3-11.0)
[2019-10-10] MEDS ORDERED: POTASSIUM CHLORIDE 20 MEQ TAB.PRT.SR PO ONE (06:30)
[2019-10-10] MEDS: FUROSEMIDE 100 MG/10 ML VIAL IV SCH ×3 (08:17→16:20)
[2019-10-10] MEDS: ASPIRIN EC 81 MG TABLET.DR PO SCH (08:18)
[2019-10-10] MEDS: CARVEDILOL 12.5 MG TABLET PO SCH ×2 (08:24→20:38)
[2019-10-10] MEDS: NIFEdipine XL (30MG) 30 MG TAB PO SCH ×2 (08:25→16:20)
[2019-10-10] MEDS: ISOSORBIDE DINITRATE (20MG) 20 MG TABLET PO SCH ×2 (08:25→16:20)
[2019-10-10] MEDS: HEPARIN SODIUM, PORCINE 5000 UNITS/1 ML VIAL SQ SCH ×2 (08:28→20:27)
[2019-10-10] MEDS ORDERED: FUROSEMIDE 40 MG/4 ML VIAL IV SCH (09:00)
[2019-10-10] MEDS ORDERED: ISOSORBIDE DINITRATE (20MG) 20 MG TABLET PO SCH (09:00)
[2019-10-10] MEDS: CLONIDINE HCL 0.1 MG TABLET PO SCH ×2 (12:29→20:38)
[2019-10-10] MEDS: DOXAZOSIN MESYLATE (4 MG) 4 MG TABLET PO SCH (22:00)
[2019-10-11] VITALS (10 sets, daily range): BP systolic 122–154; BP diastolic 49–87
[2019-10-11] MEDS: hydrALAZINE HCL 50 MG TABLET PO SCH ×2 (04:41→13:31)
[2019-10-11] MEDS: CLONIDINE HCL 0.1 MG TABLET PO SCH ×2 (04:42→13:31)
--- NOTE | 2019-10-11 05:00 | NUR ---
telephone interceptor operator notes RECEIVED PTS AND REPORT FROM ED HAMPER MAKER FOR CONTINUITY OF CARE , TO ROOM 1OR TELE STATUS , PTS IS A/O X4 AMBULATORY, ABLE TO MAKE NEEDS KNOWN ALL NEEDS ATTENDED TOO , CALL LIGHT WITHIN REACH , KEPT PTS CLEAN DRY AND COMFORTABLE .WILL ENDORSE TO RN DAY SHIFT FOR CONTINUITY OF CARE, V/S STABLE AFEBRILE.PTS ON 2 LITERS OF 02 VIA NC.
[2019-10-11 05:02] LABS: BASOPHILS % (AUTO) 0.4 % (0.0-2.0); EOSINOPHILS % (AUTO) 5.5 % (0.0-6.0); HEMATOCRIT 36 % (39-51); HEMOGLOBIN 11.5 g/dL (13.5-17.5); LYMPHOCYTES # (AUTO) 0.9 /CMM (0.8-4.8); LYMPHOCYTES % (AUTO) 18.9 % (20.0-44.0); MEAN CORPUSCULAR HGB CONC 32 g/dl (31.0-36.0); MEAN CORPUSCULAR VOLUME 73 fL (80-96); MONOCYTES # (AUTO) 0.4 /CMM (0.1-1.30); NEUTROPHILS # (AUTO) 3.2 /CMM (1.8-8.9); NEUTROPHILS % (AUTO) 66.2 % (43.0-81.0); PLATELET COUNT (AUTO) 226 /CMM (150-450); RED BLOOD CELL COUNT(AUTO) 4.98 MIL/uL (4.5-6.0); WHITE BLOOD COUNT (AUTO) 4.8 K/uL (4.3-11.0)
--- NOTE | 2019-10-11 05:05 | NUR ---
TX TO RM 103 WITH BELONGINGS, BY W/C.A/A/O XS4, NO DISTRESS NOTED OR VOICED
[2019-10-11 05:16] LABS: ALBUMIN 2.7 g/dL (3.4-5.0); BILIRUBIN,TOTAL 0.7 mg/dL (0.2-1.0); CALCIUM, SERUM 8.1 mg/dL (8.5-10.1); CREATININE 2.5 mg/dL (0.6-1.3); MAGNESIUM 1.9 mg/dL (1.8-2.4); PHOSPHORUS 3.4 mg/dL (2.5-4.9); POTASSIUM 2.9 mmol/L (3.5-5.1); TOTAL PROTEIN, SERUM 5.9 g/dL (6.4-8.2)
[2019-10-11 05:31] LABS: THYROID STIMULATING HORMONE 1.832 uIU/mL (0.358-3.74)
--- NOTE | 2019-10-11 07:00 | NUR ---
RN opening note: Patient received in bed. Awake, alert and oriented x4. Able to make needs known. Tele monitoring showing Sinus Rhythm. Isolation precautions in place to R/O COVID-19. No pain reported by patient. On room air saturating at 98%. No SOB and not in respiratory distress. IV sites clean, dry, patent and intact. Call light in reach. Bed locked, low and at semi-griffin's position. Safety ensured and observed. Side rails up x3. Will continue to monitor.
[2019-10-11] MEDS ORDERED: POTASSIUM CHLORIDE 20 MEQ TAB.PRT.SR PO ONE (07:30)
[2019-10-11] MEDS ORDERED: MINOXIDIL (2.5MG) 2.5 MG TABLET PO SCH (09:00)
[2019-10-11] MEDS ORDERED: POTASSIUM CHLORIDE 20 MEQ TAB.PRT.SR PO SCH ×2 (09:00→11:00)
[2019-10-11] MEDS: ISOSORBIDE DINITRATE (20MG) 20 MG TABLET PO SCH ×2 (09:48→16:01)
[2019-10-11] MEDS: NIFEdipine XL (30MG) 30 MG TAB PO SCH ×2 (09:49→16:00)
[2019-10-11] MEDS: CARVEDILOL 12.5 MG TABLET PO SCH (09:49)
[2019-10-11] MEDS: ASPIRIN EC 81 MG TABLET.DR PO SCH (09:49)
--- NOTE | 2019-10-11 10:00 | NUR ---
rn note: 0900 dose of KDUR rescheduled to 1100 per patient request
[2019-10-11] MEDS: HEPARIN SODIUM, PORCINE 5000 UNITS/1 ML VIAL SQ SCH (10:07)
[2019-10-11] MEDS: FUROSEMIDE 100 MG/10 ML VIAL IV SCH ×3 (10:09→16:00)
--- NOTE | 2019-10-11 12:00 | NUR ---
RN note: COVID-19 results relayed to .
--- NOTE | 2019-10-11 16:14 | NUR ---
TRAVEL INFORMATION CENTER SUPERVISOR NOTE: Patient discharged to preferred Custodial, in stable condition upon discharge. Patient left facility ambulatory and with tap card provided. Nurse was able to accompany patient to bus stop. Discharge instructions given, patient acknowledged and accepted information. Discharge forms were signed and given to patient. Patient took all scheduled medications and tolerated well.
== END 2019-10-11 16:12 | disposition home or self-care (01) | DRG 199 ==
LOC: ER 18:51 → ICU 20:54 → TELE1 10-11 05:09
PROVIDERS: ADMIT Nurse Practitioner Acute Care
DX: I16.1 Hypertensive emergency (principal); N17.0 Acute kidney failure with tubular necrosis; I21.A1 Myocardial infarction type 2; I50.33 Acute on chronic diastolic (congestive) heart failure; E44.0 Moderate protein-calorie malnutrition; D50.9 Iron deficiency anemia, unspecified; F17.210 Nicotine dependence, cigarettes, uncomplicated; I13.0 Hypertensive heart and chronic kidney disease with heart failure and stage 1 through stage 4 chronic kidney disease, or unspecified chronic kidney disease; E87.1 Hypo-osmolality and hyponatremia; E87.6 Hypokalemia; R73.9 Hyperglycemia, unspecified; E88.09 Other disorders of plasma-protein metabolism, not elsewhere classified; N18.9 Chronic kidney disease, unspecified; Z59.0 Homelessness
CPT/HCPCS: 36415; 71045-TC; 80048-TC; 80053-TC; 80076-TC; 82088; 82533; 82550-TC; 82728-TC; 83605-TC; 83615-TC; 83735-TC; 83880; 83970; 84100-TC; 84155; 84165; 84244; 84443-TC; 84484-TC; 85025-TC; 85730-TC; 86140-TC; 87040-TC; 87081-TC; G0378; J1644; J1940; J3490; U0003